=== PATIENT | female | born 1995 ===

== ENCOUNTER 2017-11-04 23:19 | Inpatient (IN) ==
[2017-11-05] MEDS ORDERED: Acetaminophen 325 MG Tablet PO PRN (02:05)
[2017-11-05] MEDS ORDERED: Aluminum/Magnesium/Simethacone Susp 30 ML UDC PO PRN (02:05)
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
--- NOTE | 2017-11-05 12:50 | P.CON ---
History of Present Illness Primary Care Provider: UNKNOWN History of Present Illness: The patient is a very pleasant 22-year-old female -B[place] with past medical history of multiple sclerosis and papilledema diagnosed in 2017 when she had a flare. Patient also has a history of depression she is taking fluoxetine. The patient is admitted to psych unit for further evaluation by psychiatrist. The hospitalist is consulted for medical management. Patient says she was not able to walk much and she had weakness of her arms at that time. She follow with Dr. Forrest neurology as outpatient she was also taking acetazolamide for papilledema however her neurology doctor said discontinue the medication. Patient is stable neurologically she can walk without any problems there is no weakness. Says when she got the flare she had mostly right-sided weakness. Says she did not have any flare since the diagnosis. She has no complaints at this time. Denies any headaches, change in vision, motor deficit. No sensory deficit. She is walking and ambulating very well in the hallways. No chest pain or shortness of breath. Able to swallow eating well no nausea or vomiting. No diarrhea constipation. Denies any urinary complaints. No concerns at this time. Review of Systems All other systems reviewed negative except as stated in HPI PMFSH - History History Provided By: Patient - Medical History Medical History: Medical History (Last Updated 11/05/17 @ 12:48 by Brianne Fernandez MD) Multiple sclerosis (Acute) Papilledema [place] teeth extracted - Family History Family History: Family History (Last Updated 11/05/17 @ 12:46 by Brianne Fernandez MD) Mother Stroke - Tobacco History Second Hand Smoke Exposure: Yes Tobacco Use In Past 30 Days: Yes Smoking Status: Light tobacco smoker Tobacco Type: Cigarettes, Cigars - Alcohol History How Often Do You Have a Drink Containing Alcohol: 2 to 4 times a month - Substance Use History Substance History: No History of Abuse Medications and Allergies Active Medications: Active Medications Acetaminophen (Tylenol) 650 mg PO Q4H PRN PRN Reason: PAIN 1-5 OR TEMP > 101F Al Hydrox/Mg Hydrox/Simethicone (Mag-Al Plus Susp Liq) 30 ml PO Q6H PRN PRN Reason: DYSPEPSIA Al Hydroxide/Mg Hydroxide (Milk Of Magnesia Liq) 30 ml PO DAILY PRN PRN Reason: CONSTIPATION Diphenhydramine HCl (Benadryl) 50 mg PO Q6H PRN PRN Reason: MILD ANXIETY OR EPS Diphenhydramine HCl (Benadryl Inj) 50 mg IM Q6H PRN PRN Reason: MILD ANXIETY OR EPS Diphenhydramine HCl (Benadryl) 50 mg PO HS PRN PRN Reason: INSOMNIA Diphenhydramine HCl (Benadryl Inj) 50 mg IM HS PRN PRN Reason: INSOMNIA Hydroxyzine HCl (Atarax) 50 mg PO Q6H PRN PRN Reason: ANXIETY Olanzapine (Zyprexa) 5 mg PO Q12H PRN PRN Reason: SEVERE AGITATION Olanzapine (Zyprexa Inj) 5 mg IM Q12H PRN PRN Reason: SEVERE AGITATION Allergies Allergy/AdvReac Type Severity Reaction Status Date / Time sertraline [From Zoloft] Allergy Severe Swelling Verified 11/05/17 01:36 of Lip/Tongue/Throat acetazolamide Allergy Seizures Verified 11/05/17 01:37 Physical Exam Vital signs: Vital Signs 11/05/17 01:15 Temperature 97.2 F L Pulse Rate 72 Respiratory Rate 16 Blood Pressure 127/70 Intake & Output 11/04/17 11/05/17 11/05/17 18:59 06:59 18:59 Weight 74.1 kg Other: Weight On Admission 74.1 kg Narrative: GENERAL: Young very pleasant AA female, appears in nad. SKIN: Warm and dry. HEAD: Atraumatic. Normocephalic. EYES: Pupils equal and round. No scleral icterus. No injection or drainage. ENT: No nasal bleeding or discharge. Mucous membranes pink and moist. NECK: Trachea midline. No JVD. CARDIOVASCULAR: Regular rate and rhythm. RESPIRATORY: No accessory muscle use. Clear to auscultation. Breath sounds equal bilaterally. GASTROINTESTINAL: Abdomen soft, non-tender, nondistended. Hepatic and splenic margins not palpable. MUSCULOSKELETAL: Extremities without clubbing, cyanosis, or edema. No obvious deformities. NEUROLOGICAL: Awake and alert. No obvious cranial nerve deficits. Motor grossly within normal limits. Five out of 5 muscle strength in the arms and legs. Normal speech. PSYCHIATRIC: Appropriate mood and affect; insight and judgment normal. Assessment and Plan - Plan Depression Management per psych H/o Multiple sclerosis diagnosed in 2017 . H/o Papilledema Says no longer takes acetozolamide. Did not have any flare Follows with Dr Adkins neurology as OP. If needs consult neurology Restart hoem emds as appropriate Medically appears stable the hospitalist will sign off Thank you for this consultation With the patient, nurse
[2017-11-05 17:37] LABS: Folate 13.7 ng/mL (3.1-17.5); Thyroid Stimulating Hormone 0.505 uIU/mL (0.358-3.740)
--- NOTE | 2017-11-05 21:51 | MG ---
cc: Salbador Thomas MD ELECTROENCEPHALOGRAM NUMBER: [id number]. DESCRIPTION: 8-9 Hz alpha activity, 20-50 microvolts, low-amplitude beta in the frontal channels. Sharp transient T3, epoch 8. Occasional mild left temporal slowing. Overall, good EEG variability and reactivity. Frequent eye movement artifact. Reasonable driving with photic stimulation. Single lead EKG showing sinus rhythm. INTERPRETATION: Nonspecific changes in the left temporal region, no active seizures. Clinical correlation. MD JHON Ferris/TREVER , 09:12 PM , 09:50 PM
[2017-11-06 09:45] LABS: Calcium 9.3 mg/dL (8.5-10.1); Carbon Dioxide 26.6 meq/L (21.0-32.0); Potassium 3.9 meq/L (3.5-5.1)
[2017-11-06 09:50] LABS: Chol/HDL Ratio 2.55 Ratio; HDL Cholesterol 70.8 mg/dL (40.0-60.0)
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
--- NOTE | 2017-11-06 11:29 | P.CONPSY ---
Provisional Diagnosis Admission Date: November 05, 2017 00:30 [place] I.: 1. Unspecified psychosis Rule-out primary psychotic disorder Rule-out mood disorder with psychotic features Rule-out psychosis due to a general medical or neurological condition Rule-out psychosis due to a substance Rule-out conscious simulation of psychotic symptoms [place] II.: Deferred History of Present Illness Service: Psychiatry Consult date: 11/06/17 Requesting Physician: Zhou Og Reason for Consult: Second opinion petition supporting [facility] Primary Care Provider: UNKNOWN History of Present Illness: Patient is a 22-year-old Afro-Macedonian female admitted to Dr. Og service under the Dailey act is dictation reviewed and agreed with. Dr. Og assigned first opinion petition supporting [employer] act. Patient seen by me with medical student Farida patient remains quite psychotic with auditory hallucinations vague delusional ideation no insight into her disease. At this time I concur with Dr. Og patient meets criteria for involuntary psychiatric hospitalization under the Dailey act thus I will cosign second opinion petition supporting [facility] Review of Systems All other systems reviewed negative except as stated in HPI PMFSH - History History Provided By: Patient - Medical History Medical History: Medical History (Last Updated 11/05/17 @ 12:48 by Brianne Fernandez MD) Multiple sclerosis (Acute) Papilledema [place] teeth extracted - Family History Family History: Family History (Last Updated 11/05/17 @ 12:46 by Brianne Fernandez MD) Mother Stroke - Tobacco History Tobacco Use In Past 30 Days: Yes Medications and Allergies Active Medications: Active Medications Acetaminophen (Tylenol) 650 mg PO Q4H PRN PRN Reason: PAIN 1-5 OR TEMP > 101F Al Hydrox/Mg Hydrox/Simethicone (Mag-Al Plus Susp Liq) 30 ml PO Q6H PRN PRN Reason: DYSPEPSIA Al Hydroxide/Mg Hydroxide (Milk Of Magnesia Liq) 30 ml PO DAILY PRN PRN Reason: CONSTIPATION Diphenhydramine HCl (Benadryl) 50 mg PO HS PRN PRN Reason: INSOMNIA Allergies Allergy/AdvReac Type Severity Reaction Status Date / Time sertraline [From Zoloft] Allergy Severe Swelling Verified 11/05/17 01:36 of Lip/Tongue/Throat acetazolamide Allergy Seizures Verified 11/05/17 01:37 azithromycin Allergy Rash Unverified 11/05/17 13:23 Exam Vital signs: Vital Signs 11/06/17 05:46 Temperature 98.1 F Pulse Rate 93 H Respiratory Rate 17 Blood Pressure 119/57 L Pulse Oximetry 100 Mental Status Examination Appearance: Appropriate Consciousness: Alert Orientation: x4 Motor Activity: Other (No motor abnormalities noted) Speech: Slow Language: Adequate Fund of Knowledge: Adequate Attention and Concentration: Adequate Memory: Unremarkable (Registration 3 out of 3 and recall 2 out of 3 at 3 minutes.) Mood: Other ("Pretty mellow") Affect: Other (Blunted, tending towards flat) Thought Process & Associations: Linear (Within delusions) Thought Content: Hallucinations, Delusional Hallucination Type: Auditory (Presently vague. Denies command auditory hallucinations at this time.) Delusion Type: Other (Ideas of reference) Suicidal Ideation: No Suicidal Plan: No Suicidal Intention: No Homicidal Ideation: No Homicidal Plan: No Homicidal Intention: No Insight: Poor Judgment: Poor Assessment and Plan - Assessment (1) Unspecified psychosis Code(s): F29 - Unspecified psychosis not due to a substance or known physiological condition Status: Acute - Plan Plan: I agree with Dr. Og patient meets criteria for involuntary psychiatric hospitalization thus I will cosign second opinion petition supporting [facility] Justification for Continued Inpatient Stay: At this time patient would decompensate a place to the lower level of care Discharge Planning: To be determined Request Healthcare Surrogate/Guardian Advocate?: Yes
[2017-11-06 13:10] LABS: Hemoglobin A1c 4.5 % (4.3-6.0)
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
[2017-11-06] MEDS ORDERED: risperiDONE 0.5 MG ODT PO SCH (21:00)
[2017-11-06] MEDS: risperiDONE 0.5 MG ODT PO SCH (21:09)
[2017-11-07] MEDS: risperiDONE 0.5 MG ODT PO SCH (08:13)
[2017-11-07] MEDS ORDERED: Benztropine Inj 2 MG/2 ML Ampul IM PRN (09:36)
--- NOTE | 2017-11-07 09:36 | P.PNPSY ---
Subjective Chief Complaint: Psychosis Remarks: Patient seen and examined with nurse. Chart reviewed. Case discussed with nursing staff. Per nursing, patient reported hearing auditory hallucinations of a psychic telling her to go into the [employer]. On my examination today, the patient reiterates that she is hearing a voice saying that she is psychic. She says that she has applied for a position at the [employer]. She remains internally stimulated. She complains of some mild stiffness from Risperdal but has no hand tremor, no cogwheeling, no dystonias or dyskinesias on exam. No other side effects reported. Patient declines initiation of scheduled Cogentin for subjective stiffness. No other physical complaints. Vital Signs Temp Pulse Resp BP Pulse Ox 11/07/17 06:33 98.4 F 77 16 112/59 L 98 11/07/17 06:18 98.1 F 83 17 114/57 L 11/06/17 17:59 98.5 F 83 17 103/61 100 Impressions Head MRI 11/07/17 00:00 CONCLUSION: 1. There are multiple periventricular white matter changes characteristic of demyelinization. This pattern is consistent with multiple sclerosis. 2. No enhancing periventricular plaques are noted on the postcontrast images. Labs reviewed. Thiamine level still pending. Review of Systems All other systems reviewed negative except as stated in HPI (Limitation: Poor historian) Mental Status Examination Appearance: Appropriate Consciousness: Alert Orientation: Person, Place (At least) Motor Activity: Other (No motoric abnormalities noted) Speech: Slow Language: Adequate Fund of Knowledge: Adequate Attention and Concentration: Adequate Memory: Unremarkable Mood: Other (Calm) Affect: Flat (Remains fairly flat and somewhat interpersonally odd) Thought Process & Associations: Linear (Within delusions) Thought Content: Delusional Hallucination Type: Other (Remains internally preoccupied) Delusion Type: Bizarre Suicidal Ideation: No Suicidal Plan: No Suicidal Intention: No Homicidal Ideation: No Homicidal Plan: No Homicidal Intention: No Insight: Poor Judgment: Poor Assessment and Plan - Assessment (1) Unspecified psychosis Code(s): F29 - Unspecified psychosis not due to a substance or known physiological condition Status: Acute - Plan Plan: Titrate Risperdal to 0.75mg BID to target psychosis. Make Cogentin available p.r.n. EPS. Patient declined scheduled anticholinergic. Neurology input noted and appreciated. Continue to monitor on the inpatient unit. Continue other medications and care as ordered. Justification for Continued Inpatient Stay: Medication changes. Impairment in reality construction. High risk for decompensation in less restrictive environment. Discharge Planning: Pending psychiatric stabilization. Dailey act court tomorrow. Request Healthcare Surrogate/Guardian Advocate?: Yes
[2017-11-07] MEDS ORDERED: Gadobutrol PF 7.5 MMOL/7.5 ML Vial (for RAD) IV.SIG ONE (10:20)
--- NOTE | 2017-11-07 10:38 | MR ---
EXAM DATE: 11/07/2017 10:27 AM EDT AGE/SEX: 22 years / Female INDICATIONS: . Multiple sclerosis. CLINICAL DATA: This is the patient's initial encounter. Patient reports that signs and symptoms have been present for 2 days and indicates a pain score of 0/10. MEDICAL/SURGICAL HISTORY: Multiple sclerosis. None. COMPARISON: No prior exams available for comparison. TECHNIQUE: Multiplanar, multisequence examination of the brain was performed without and with 7 ml Ga davist (gadobutrol) contrast as a single exam dose. FINDINGS: Cerebrum: The ventricles are normal for age. No evidence of midline shift, mass lesion, hemorrhage or acute infarction. No extraaxial fluid collections are seen. The pituitary gland and suprasellar cistern are normal in configuration. White Matter: There are multiple periventricular white matter changes characteristic of demyelinizat ion. This pattern would be consistent with multiple sclerosis. Posterior Fossa: The cerebellum and brainstem are intact. No definite demyelinating lesions are demon strated. The 4th ventricle is midline. The cerebellopontine angle is unremarkable. The cerebellar t onsils are normal in position. Diffusion Imaging: No focal areas of restricted diffusion are seen. No evidence of acute infarction . Extracranial: The visualized portions of the orbits and paranasal sinuses are unremarkable. Post Contrast: No abnormal areas of parenchymal or dural enhancement. No evidence of blood-brain ba rrier breakdown. No enhancing paraventricular plaques. CONCLUSION: 1. There are multiple periventricular white matter changes characteristic of demyelinization. This p attern is consistent with multiple sclerosis. 2. No enhancing periventricular plaques are noted on the postcontrast images. Electronically signed by: Chente Ruff MD 11/07/2017 10:37 AM EDT
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
[2017-11-09] MEDS ORDERED: ARIPiprazole 5 MG Tablet PO SCH (09:00)
--- NOTE | 2017-11-09 10:36 | P.PNPSY ---
Subjective Chief Complaint: Psychosis Remarks: Patient seen and examined with nurse and counselor. Chart reviewed. Case discussed with nursing staff. No behavioral issues noted overnight. Case discussed in treatment team. On my examination today, the patient seems more at ease. She says that she likes the Abilify "much better" than the Risperdal and is tolerating this medication well. Affect is somewhat more reactive and appropriate. Denies AVH but remains a little bit internally preoccupied. Denies SI or HI. No physical complaints. Vital Signs Temp Pulse Resp BP Pulse Ox 11/09/17 06:42 97.8 F 78 16 94/61 L 99 11/08/17 17:22 98.5 F 79 18 131/61 98 Labs reviewed. Review of Systems All other systems reviewed negative except as stated in HPI Mental Status Examination Appearance: Appropriate Consciousness: Alert Orientation: Person, Place (At least) Motor Activity: Other (No motor abnormalities noted) Speech: Slow (Rate normalizing) Language: Adequate Fund of Knowledge: Adequate Attention and Concentration: Adequate Memory: Unremarkable Mood: Other (Calm) Affect: Blunt (More reactive today) Thought Process & Associations: Linear (Within delusions) Thought Content: Delusional Hallucination Type: Other (Denies AVH but remains somewhat internally preoccupied) Delusion Type: Paranoid (Perhaps decreasing) Suicidal Ideation: No Homicidal Ideation: No Insight: Poor Judgment: Poor Assessment and Plan - Assessment (1) Unspecified psychosis Code(s): F29 - Unspecified psychosis not due to a substance or known physiological condition Status: Acute - Plan Plan: Titrate Abilify over the weekend to target psychotic symptoms to 10 mg daily. I spoke with Dr. Adan from neurology today regarding the patient's MS medication. Dr. Adan does recommend resuming Aubagio if this can be brought in from home as it is not on formulary here. If it cannot, Dr. Adan does not recommend substituting a different agent and says that it would be okay for the patient to miss a week or 2 of this medication. He is less suspicious that multiple sclerosis is contributing to patient's psychosis, especially given the absence of active disease. Transfer to lower acuity unit as patient's behavior seems more appropriate at this time for that unit. Continue other medications and care as ordered. Justification for Continued Inpatient Stay: Impairment in reality construction. Risk for decompensation in less restrictive environment. Medication changes. Discharge Planning: Pending psychiatric stabilization Request Healthcare Surrogate/Guardian Advocate?: Yes (1) Unspecified psychosis Qualifiers: Psychosis type: brief psychotic disorder Qualified Code(s): F23 - Brief psychotic disorder
[2017-11-09] MEDS ORDERED: TERIFLUNOMIDE 7 MG PO SCH (12:00)
[2017-11-10] MEDS: ARIPiprazole 5 MG Tablet PO SCH (09:38)
--- NOTE | 2017-11-10 10:09 | P.PNPSY ---
Subjective Chief Complaint: Psychosis Remarks: Chart reviewed and discussed with nursing staff. Rounded on patient with Chance MATHIS. Patient found in her room lying on her bed. Patient states that she is feeling much better today. 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 She states that her multiple sclerosis is under control. She endorses that she does get psychotic when she takes a steroid to address an exacerbation of her multiple sclerosis. She denies any psychosis at this time. She is calm and pleasant. Nursing staff endorse that she has been sleeping a lot and is somewhat seclusive. Patient is participating in her own self hygiene. Patient encouraged to participate in outdoor and unit activities. Review of Systems All other systems reviewed negative except as stated in HPI Mental Status Examination Appearance: Appropriate Consciousness: Alert Orientation: Person, Place (At least) Motor Activity: Other (No motor abnormalities noted) Speech: Slow (Rate normalizing) Language: Adequate Fund of Knowledge: Adequate Attention and Concentration: Adequate Memory: Unremarkable Mood: Other (Calm) Affect: Euthymic Thought Process & Associations: Linear (Within delusions) Thought Content: Appropriate Hallucination Type: None Delusion Type: Paranoid (Perhaps decreasing) Suicidal Ideation: No Suicidal Plan: No Suicidal Intention: No Homicidal Ideation: No Homicidal Plan: No Homicidal Intention: No Insight: Poor Judgment: Poor Assessment and Plan - Assessment (1) Unspecified psychosis Code(s): F29 - Unspecified psychosis not due to a substance or known physiological condition Status: Acute - Plan Plan: Patient is experiencing some efficacy from the Abilify. Psychotic symptoms are decreasing. Patient understands that psychiatrist did speak with Dr. Adan, Neurologist and that she can resume the Aubagio when she is discharged. . Justification for Continued Inpatient Stay: Moving patient to low-level care may result in her decompensation. Discharge Planning: Discharge planning in progress. 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
[2017-11-11] MEDS: ARIPiprazole 5 MG Tablet PO SCH (08:35)
--- NOTE | 2017-11-11 12:21 | P.PNPSY ---
Subjective Chief Complaint: Psychosis Remarks: Reviewed electronic medical record and discussed case with staff. Patient's nurse reports that she has been "friendly but a little flat." She states that she has been compliant with her medications. She further advises that the patient had complained of an "itchy vagina". She states that she did a visual inspection and thought she saw "blisters" to the external genitalia. I will order a medical consult. Follow-up was conducted in the [place] with nurse present. Patient reports that she slept well has a good appetite. Her mood is good and her affect is euthymic. She answers all questions appropriately. No indication of internal stimulation nor thought blocking. Mental Status Examination Appearance: Appropriate Consciousness: Alert Orientation: Person, Place (At least) Motor Activity: Other (No motor abnormalities noted) Speech: Slow (Rate normalizing) Language: Adequate Fund of Knowledge: Adequate Attention and Concentration: Adequate Memory: Unremarkable Mood: Other (Calm) Affect: Euthymic Thought Process & Associations: Linear (Within delusions) Thought Content: Appropriate Hallucination Type: None Delusion Type: Paranoid (Perhaps decreasing) Suicidal Ideation: No Suicidal Plan: No Suicidal Intention: No Homicidal Ideation: No Homicidal Plan: No Homicidal Intention: No Insight: Poor Judgment: Poor Assessment and Plan - Assessment (1) Unspecified psychosis Code(s): F29 - Unspecified psychosis not due to a substance or known physiological condition Status: Acute - Plan Plan: Patient will be reevaluated tomorrow by her attending psychiatrist. Continue with current treatment plan. Justification for Continued Inpatient Stay: Moving this patient to a less restrictive environment would likely result in decompensation. 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
--- NOTE | 2017-11-11 15:04 | P.PN ---
Subjective Interval history: Reconsulted for vaginal itching. Patient seen and examined today. Reports vaginal itching started yesterday. Denies any fevers, chills, nausea, vomiting , diarrhea. Denies abdominal pain and discomfort. States that vaginal discharge noted to be greenish in color, not white or clumping, she has not noticed any odor. Denies dysuria, burning sensation with urination. Physical Exam Vital signs: Vital Signs 11/10/17 18:33 11/11/17 05:37 Temperature 98.9 F 97.8 F Pulse Rate 85 71 Respiratory Rate 18 16 Blood Pressure 136/89 124/63 Pulse Oximetry 100 97 Intake & Output 11/10/17 11/11/17 11/11/17 18:59 06:59 18:59 Intake Total 1440 / 1440 360 / 360 Balance 1440 / 1440 360 / 360 Intake: Oral 1440 / 1440 360 / 360 Narrative: GENERAL: This is a well-nourished, well-developed patient, in no apparent distress. SKIN: Warm and dry. HEENT: Normocephalic. Pupils equal round and reactive. Nose without bleeding. Airway patent. NECK: Trachea midline. GENITOURINARY: Vaginal area without erythema, blisters, edema. Not tender to palpate. Labia smooth no lesions seen. Vaginal odor present, malodorous "fishy." No vaginal discharge noted. MUSCULOSKELETAL: Extremities without clubbing, cyanosis, or edema. NEUROLOGICAL: Awake and alert. Oriented to time, place, person. No focal neuro deficit. Moves all extremities. Normal speech. Results - Labs CBC & Chem 7: 11/06/17 08:20 - Procedures None Assessment and Plan - Plan 22-year-old female -[place] with past medical history of multiple sclerosis and papilledema diagnosed in 2016 when she had a flare Depression -Managed by psychiatry team Bacterial vaginosis, versus Trichomonas -Fluconazole 150mg1 dose now -Flagyl 500 mg twice daily 7 days Multiple sclerosis diagnosed in 2006 History of papilledema -Not an acute flare. Follow-up and outpatient. DVT Prop Ambulatory Code Status: Full Code Discussed Condition With: Patient, nursing Discharge Planning: DC disposition by psychiatry
[2017-11-11] MEDS ORDERED: Fluconazole 100 MG Tablet PO ONE (15:05)
[2017-11-11] MEDS: metroNIDAZOLE 500 MG Tablet PO SCH (22:05)
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
[2017-11-12] MEDS: metroNIDAZOLE 500 MG Tablet PO SCH ×2 (11:01→20:57)
[2017-11-12] MEDS: ARIPiprazole 5 MG Tablet PO SCH (11:01)
--- NOTE | 2017-11-12 12:23 | P.PN ---
Subjective Interval history: Patient seen lying in bed. She tells me that she is doing well with no new concerns or complaints. Vaginal discomfort and discharge has improved per her report. No nausea vomiting or diarrhea. No chest pain or shortness of breath. Good appetite. No dysuria. Physical Exam Vital signs: Vital Signs 11/11/17 18:21 11/11/17 21:00 11/11/17 21:45 Temperature 98.4 F 98.7 F 98.4 F Pulse Rate 72 73 67 Respiratory Rate 16 20 17 Blood Pressure 130/70 120/57 L 86/46 L Pulse Oximetry 97 97 11/11/17 22:58 11/12/17 05:37 11/12/17 08:39 Temperature 98.0 F 98.8 F Pulse Rate 65 74 86 Respiratory Rate 19 15 Blood Pressure 94/55 L 99/58 L 125/61 Pulse Oximetry 98 99 11/12/17 08:41 11/12/17 08:43 Temperature Pulse Rate 86 105 H Respiratory Rate Blood Pressure 125/61 127/75 Pulse Oximetry Intake & Output 11/11/17 11/12/17 11/12/17 18:59 06:59 18:59 Intake Total 360 / 360 720 / 720 Output Total Balance 360 / 360 - 720 / 720 Intake: Oral 360 / 360 720 / 720 Output: Urine Narrative: GENERAL: Well-nourished, well-developed adult female in no obvious distress. SKIN: Warm and dry. HEAD: Atraumatic. Normocephalic. CARDIOVASCULAR: Regular rate and rhythm. RESPIRATORY: No accessory muscle use. Clear to auscultation. Breath sounds equal bilaterally. GASTROINTESTINAL: Abdomen soft, non-tender, [id number]. Positive bowel sounds. MUSCULOSKELETAL: Extremities without clubbing, cyanosis, or edema. No obvious deformities. NEUROLOGICAL: Awake and alert. No obvious cranial nerve deficits. Motor grossly within normal limits. Normal speech. PSYCHIATRIC: Appropriate mood and affect; insight and judgment good. Results - Labs CBC & Chem 7: 11/06/17 08:20 - Procedures None Assessment and Plan - Plan 22-year-old female -[place]ian with past medical history of multiple sclerosis and papilledema diagnosed in 2017 when she had a flare Depression -Managed by psychiatry team Bacterial vaginosis, versus Trichomonas -Fluconazole 150mg1 dose now (done 11/11) -Flagyl 500 mg twice daily 7 days (started 11/11) Multiple sclerosis diagnosed in 2006 History of papilledema -Not an acute flare. Follow-up and outpatient. DVT Prop Ambulatory Discussed with: Patient and nurse. Patient appears medically stable. [facility] will sign off at this time. Please reconsult if needed.
[2017-11-13] MEDS: ARIPiprazole 5 MG Tablet PO SCH (09:40)
[2017-11-13] MEDS: metroNIDAZOLE 500 MG Tablet PO SCH ×3 (09:40→21:30)
--- NOTE | 2017-11-13 10:00 | P.PNPSY ---
Subjective Chief Complaint: Psychosis Remarks: Patient seen and examined with nurse. Chart reviewed. Mildly orthostatic by pulse. Case discussed with nursing staff. No behaviors noted overnight. Case discussed in treatment team. On my examination today, the patient is wandering around the unit. She appears a little internally stimulated, although she denies AVH. Denies SI or HI. No side effects from medications. No physical complaints. Patient continues to insist that she is going to go to [facility] alone to start a new job after discharge, but this seems like a distinctly unwise discharge plan. Vital Signs Temp Pulse Resp BP Pulse Ox 11/13/17 13:20 103 H 116/60 11/13/17 05:55 98.2 F 59 L 15 108/56 L 97 11/12/17 18:15 97.5 F L 78 15 128/62 100 Intake and Output 11/12/17 11/13/17 11/13/17 22:59 06:59 14:59 Intake Total 700 / 700 240 / 240 Balance 700 / 700 240 / 240 Intake: Oral 600 / 600 240 / 240 Oral Supplement 100 / 100 Other: # Voids 1 Weight 77.5 kg Labs reviewed. No new labs. Review of Systems All other systems reviewed negative except as stated in HPI (Limitation: Psychosis) Mental Status Examination Appearance: Appropriate Consciousness: Alert Orientation: Person, Place (At least) Motor Activity: Other (No abnormal motor movements appreciated) Speech: Slow (Rate normalizing) Language: Adequate Fund of Knowledge: Adequate Attention and Concentration: Adequate Memory: Unremarkable Mood: Other (Calm) Affect: Blunt Thought Process & Associations: Linear Thought Content: Appropriate Hallucination Type: Other (Remains somewhat internally stimulated) Delusion Type: None Suicidal Ideation: No (Unreliable to contract for safety) Suicidal Plan: No Suicidal Intention: No Homicidal Ideation: No Homicidal Plan: No Homicidal Intention: No Insight: Poor Judgment: Poor Assessment and Plan - Assessment (1) Unspecified psychosis Code(s): F29 - Unspecified psychosis not due to a substance or known physiological condition Status: Acute - Plan Plan: Titrate Abilify to 15 mg daily. Monitor for worsening of orthostasis with this medication dose change. Hospitalist input noted and appreciated. Transfer back down to general psychiatric unit. Continue other medications and care as ordered. Justification for Continued Inpatient Stay: Medication changes. High risk for decompensation in less restrictive environment. Discharge Planning: Pending psychiatric stabilization Request Healthcare Surrogate/Guardian Advocate?: Yes (1) Unspecified psychosis Qualifiers: Psychosis type: brief psychotic disorder Qualified Code(s): F23 - Brief psychotic disorder
[2017-11-14] MEDS: metroNIDAZOLE 500 MG Tablet PO SCH ×2 (10:25→20:57)
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
[2017-11-14 12:04] LABS: Bacteria,Urine Few /hpf; Bilirubin,Urine Negative (Negative); Color,Urine Yellow (Yellw/Straw); Glucose,Urine (UA) Negative (Negative); Hyaline Casts,Urine 1 /lpf (0-3); Leukocyte Esterase,Urine Trace (Negative); Mucus,Urine Few /lpf (Occasional); Nitrite,Urine Negative (Negative); Squamous Epithelial Cell,Urine 28 /hpf (0-5)
[2017-11-14 12:06] LABS: Clarity,Urine Hazy (Clear)
--- NOTE | 2017-11-15 08:52 | P.PNNEU ---
Subjective Subjective Comments: Patient developed blurred vision yesterday and vertigo . She states these sx have resolved today Active Medications: Active Medications Acetaminophen (Tylenol) 650 mg PO Q4H PRN PRN Reason: PAIN 1-5 OR TEMP > 101F Al Hydrox/Mg Hydrox/Simethicone (Mag-Al Plus Susp Liq) 30 ml PO Q6H PRN PRN Reason: DYSPEPSIA Al Hydroxide/Mg Hydroxide (Milk Of Magnesia Liq) 30 ml PO DAILY PRN PRN Reason: CONSTIPATION Aripiprazole (Abilify) 15 mg PO DAILY [facility] Last Admin: 11/14/17 16:09 Dose: 15 mg Benztropine Mesylate (Cogentin Inj) 1 mg IM Q12HR PRN PRN Reason: EPS, unable to take PO Benztropine Mesylate (Cogentin) 1 mg PO BID PRN PRN Reason: EXTRA PYRAMIDAL SYMPTOMS Last Admin: 11/09/17 22:05 Dose: 1 mg Diphenhydramine HCl (Benadryl) 50 mg PO HS PRN PRN Reason: INSOMNIA Hydroxyzine HCl (Atarax) 25 mg PO Q6H PRN PRN Reason: ANXIETY Metronidazole (Flagyl) 500 mg PO BID [facility] Stop: 11/18/17 20:59 Last Admin: 11/14/17 20:57 Dose: Not Given Pt Own Med: Aubagio (7mg Po Daily.) 1 each PO DAILY [facility] Allergies/Adverse Reactions: Allergies Allergy/AdvReac Type Severity Reaction Status Date / Time sertraline [From Zoloft] Allergy Severe Swelling Verified 11/05/17 01:36 of Lip/Tongue/Throat acetazolamide Allergy Seizures Verified 11/05/17 01:37 azithromycin Allergy Rash Verified 11/07/17 10:49 Physical Exam Vital signs: Vital Signs 11/14/17 18:00 11/15/17 05:26 Temperature 98.6 F 98.1 F Pulse Rate 86 17 L Respiratory Rate 18 17 Blood Pressure 115/59 L 110/55 L Pulse Oximetry 100 98 Intake & Output 11/14/17 11/15/17 11/15/17 18:59 06:59 18:59 Intake Total 720 / 720 360 / 360 Balance 720 / 720 360 / 360 Intake: Oral 720 / 720 360 / 360 - Routine Neurological Exam alert, oriented, speech normal CN 2-12 normal PERRL, extraoccular motility normal with no ALAN and no nystagmus MOTOR 5/5 BUE and BLE, No drift Objective Laboratory Results - last 24 hr 11/14/17 11:10 Urine Color Yellow Urine Clarity Hazy H Urine pH 7.0 Ur Specific Archbold 1.020 Urine Protein Negative Urine Glucose (UA) Negative Urine Ketones Negative Urine Occult Blood Negative Urine Nitrate Negative Urine Bilirubin Negative Urine Urobilinogen Less than 2 Ur Leukocyte Esterase Trace H Urine RBC 1 Urine WBC 2 Ur Squamous Epith Cells 28 Urine Bacteria Few H Hyaline Casts 1 Urine Mucus Few H Micro UA Comment Culture not ind Urine Culture Comments Culture not ind Review/Management - Review/Management Plan: I think her sx were likely due to a pseudoexacerbation. Sx have resolved this am and no new exam findings. I will hold off on performing repeat MRI brain. Would not recommend specific MS therapy other than resume aubagio when possible. I asked her if a family member or friend could bring her supply in to hospital but she states this is not available. i recommend resume aubagio as soon as discharged.
[2017-11-15] MEDS: metroNIDAZOLE 500 MG Tablet PO SCH ×2 (09:24→21:25)
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
[2017-11-16] MEDS: metroNIDAZOLE 500 MG Tablet PO SCH ×2 (09:50→21:38)
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
[2017-11-17] MEDS: metroNIDAZOLE 500 MG Tablet PO SCH (11:13)
== END 2017-11-17 12:35 | disposition home or self-care (01) ==
LOC: H270 11-05 00:30 → H260 11-09 10:43 → H4EA 11-11 22:30 → H260 11-13 11:15
PROVIDERS: ADMIT Psychiatry & Neurology Psychiatry; ATTEND Psychiatry & Neurology Psychiatry